=== PATIENT | male | born 1945 | race American Indian/Alaskan Native ===

== ENCOUNTER 2019-06-19 17:48 | Inpatient (IN) | payer MEDICARE ==
--- NOTE | 2019-06-19 18:17 | Event Note ---
ED Screening Note Date of service: 06/19/19 Time: 18:14 ED Screening Note: 73 y/o male comes in for ams after having a head injury and being discharge from hospital. This initial assessment/diagnostic orders/clinical plan/treatment(s) is/are subject to change based on patients health status, clinical progression and re- assessment by fellow clinical providers in the ED. Further treatment and workup at subsequent clinical providers discretion. Patient/guardian urged not to elope from the ED as their condition may be serious if not clinically assessed and managed. Initial orders include:
--- NOTE | 2019-06-19 19:15 | Cat Scan Report ---
CT BRAIN: 06/19/2019 INDICATION / CLINICAL INFORMATION: head injury new neuro sxs. COMPARISON: None available. FINDINGS: BRAIN/INTRACRANIAL STRUCTURES: Unenhanced CT images of the brain demonstrate no evidence of acute int racranial abnormality. Ventricles and sulci are prominent in size, consistent with diffuse cerebral atrophy. There is no evidence of acute ischemic injury, hemorrhage, or mass. There are no abnormal extra-axial fluid collections. EXTRACRANIAL STRUCTURES: Unremarkable. IMPRESSION: No acute abnormality. Prominent diffuse cerebral atrophy. All CT scans at this location are performed using dose reduction to ALARA by means of automated expos ure control. Signer Name: Phil Marroquin MD Signed: 06/19/2019 7:11 PM Workstation Name: [id number]
--- NOTE | 2019-06-19 20:27 | Emergency Department Report ---
HPI - General Chief Complaint: Headache Time Seen by Provider: 06/19/19 17:54 - HPI HPI: Room 3 The patient is a 73-year-old male presenting with a chief complaint of altered mental status. Patient's daughter states patient was found on the ground blee ding from his head 1 06/12/2019 at his assisted living facility. The patient is taken to [facility] where he was evaluated at his laceration repaired. 5 days later on 06/17/2019 patient was taken back to [facility] after complaining of a headache and he found hypotensive. Patient was admitted for 2 days and is hypotension was treated to dehydration compounded with prostate medication. The patient was returned to his assisted living facility yesterday. The patient's daughter states today he had an episode of unresponsiveness where he was staring off to the side for approximately 2 minutes without responding. The patient reportedly had a similar episode the day after his initial fall (06/13/2019). When asked how his feeling the patient points to pain to the left side of his neck and in both knees. The patient's daughter states that she is concerned that the patient is not continuously observed at the assisted-living facility she is seeking assisted placement Location: [See above] Duration: [See above] Quality: [See above] Severity: [See above] Timing: [See above] Context: [See above] Modifying factors: [See above] Associated signs and symptoms: [see above] ED Past Medical Hx - Past Medical History Previous Medical History?: Yes Additional medical history: parkinson, BPH, depression - Surgical History Past Surgical History?: Yes Additional Surgical History: 2 finger, 2 shoulder, - Family History Family history: no significant - Social History Smoking Status: Former Smoker (none 4-5 years) Substance Use Type: None - Medications Home Medications: Home Medications Medication Instructions Recorded Confirmed Last Taken Type HYDROcodone/ACETAMINOPHEN 1 tab PO PRN PRN 08/02/14 08/05/14 08/03/14 History [Hydrocodon-Acetaminophn 10-325] ED Review of Systems ROS: Stated complaint: BLANK STARE/HEADACHE Other details as noted in HPI Constitutional: no symptoms reported Eyes: denies: eye pain ENT: denies: throat pain Respiratory: no symptoms reported Cardiovascular: denies: chest pain Endocrine: no symptoms reported Gastrointestinal: denies: abdominal pain Genitourinary: denies: dysuria Musculoskeletal: arthralgia Neurological: headache Physical Exam - Physical Exam Vital Signs: Vital Signs 06/19/19 06/19/19 17:59 20:12 Temperature 98.0 F Pulse Rate 79 74 Respiratory 20 16 Rate Blood Pressure 118/63 Blood Pressure 117/65 [Right] O2 Sat by Pulse 98 98 Oximetry Physical Exam: GENERAL: The patient is well-developed thin male with flat affect lying on stretcher not appearing to be in acute distress []. [] HEENT: Normocephalic. Atraumatic. Extraocular motions are intact. Patient has moist mucous membranes. NECK: Supple. Left lateral neck pain. No axial step offs CHEST/LUNGS: Clear to auscultation. There is no respiratory distress noted. HEART/CARDIOVASCULAR: Regular. There is no tachycardia. There is no gallop rub or murmur. ABDOMEN: Abdomen is soft, nontender. Patient has normal bowel sounds. There is no abdominal distention. SKIN: There is no rash. There is no edema. There is no diaphoresis. NEURO: The patient is awake and oriented with flat affect. The patient is cooperative. The patient has no focal neurologic deficits. The patient has normal speech. Cranial nerves II through XII grossly intact, no drift. Moves all gonzales is well MUSCULOSKELETAL: There is trace discomfort to palpation of bilateral knees. There is no evidence of acute injury. ED Course Vital Signs 06/19/19 06/19/19 17:59 20:12 Temperature 98.0 F Pulse Rate 79 74 Respiratory 20 16 Rate Blood Pressure 118/63 Blood Pressure 117/65 [Right] O2 Sat by Pulse 98 98 Oximetry ED Medical Decision Making - Lab Data Result diagrams: 06/19/19 Unknown 06/19/19 Unknown Laboratory Tests 06/19/19 06/19/19 Unknown Unknown WBC 4.3 L RBC 3.86 Hgb 12.4 Hct 36.5 MCV 95 H MCH 32 MCHC 34 RDW 13.6 Plt Count 31 L Lymph % (Auto) Hand Polisher [place] % (Auto) Hand Polisher Eos % (Auto) Hand Polisher Baso % (Auto) Hand Polisher Lymph # Hand Polisher [place] # Hand Polisher Eos # Hand Polisher Baso # Hand Polisher Seg Neutrophils % Hand Polisher Seg Neutrophils # Hand Polisher Sodium 136 L Potassium 4.0 Chloride 95.9 L Carbon Dioxide 29 Anion Gap 15 BUN 15 Creatinine 0.7 L Estimated GFR > 60 BUN/Creatinine Ratio 21 Glucose 82 Calcium 9.8 Magnesium 1.60 L Total Bilirubin 0.20 AST 23 ALT 22 Alkaline Phosphatase 84 Total Creatine Kinase 102 CK-MB (CK-2) 2.0 CK-MB (CK-2) Rel Index 1.9 Troponin T < 0.010 Total Protein 6.7 Albumin 3.9 Albumin/Globulin Ratio 1.4 - EKG Data -: EKG Interpreted by Me EKG shows normal: sinus rhythm Rate: normal - EKG Data When compared to previous EKG there are: previous EKG unavailable Interpretation: other (no ischemic changes seen) - Radiology Data Radiology results: report reviewed (CT head, pelvis x-ray, CT cervical spine), image reviewed (CT head, pelvis x-ray, bilateral knee x-ray, CT cervical spine) interpreted by me: Post x-ray-no acute fracture Bilateral knee x-ray-no acute fracture [facility] [address] [place] [address] Cat Scan Report Signed Patient: PASTOR CANTRELL MR#: [id number] : 1945 Acct:[id number] Age/Sex: 73 / M ADM Date: 06/19/19 Loc: ED Attending Dr: Ordering Physician: LORIN HENAO Date of Service: 06/19/19 Procedure(s): CT head/brain wo con Accession Number(s): [id number] cc: LORIN HENAO CT BRAIN: 06/19/2019 INDICATION / CLINICAL INFORMATION: head injury new neuro sxs. COMPARISON: None available. FINDINGS: B RAIN/INTRACRANIAL STRUCTURES: Unenhanced CT images of the brain demonstrate no evidence of acute intracranial abnormality. Ventricles and sulci are prominent in size, consistent with diffuse cerebral atrophy. There is no evidence of acute ischemic injury, hemorrhage, or mass. There are no abnormal extra-axial fluid collections. EXTRACRANIAL STRUCTURES: Unremarkable. IMPRESSION: No acute abnormality. Prominent diffuse cerebral atrophy. All CT scans at this location are performed using dose reduction to ALARA by means of automated exposure control. Signer Name: Phil Marroquin MD Signed: 06/19/2019 7:11 PM Workstation Name: [id number] Transcribed By: AO Dictated By: Phil Marroquin MD Electronically Authenticated By: Phil Marroquin MD Signed Date/Time: 06/19/191910 DD/ 08 TD/TT: [address] [address] XRay Report Signed Patient: PASTOR CANTRELL MR#: [id number] : 1945 Acct:[id number] Age/Sex: 73 / M ADM Date: 06/19/19 Loc: ED Attending Dr: Ordering Physician: DEMOND DOHERTY MD Date of Service: 06/19/19 Procedure(s): XR pelvis 1-2V Accession Number(s): [id number] cc: DEMOND DOHERTY MD Fluoro Time In Minutes: EXAMINATION: Pelvic radiograph, 2 views, 06/19/2019 CLINICAL INFORMATION: Pelvic pain. Fall. COMPARISON: No relevant prior studies are available for comparison. FINDINGS: Evaluation of bony structures demonstrate no evidence of displaced pelvic fracture. There is mild degenerative change of both hips. Moderate amount of retained stool is noted throughout the lower abdomen. IMPRESSION: No evidence of acute bony fracture of the pelvis. Signer Name: Erin Garcia MD Signed: 06/19/2019 8:51 PM Workstation Name: [id number] Transcribed By: EB Dictated By: Erin Garcia MD Electronically Authenticated By: Erin Garcia MD Signed Date/Time: 06/19/192050 DD/ 49 TD/TT: [address] [address] XRay Report Signed Patient: PASTOR CANTRELL MR#: [id number] : 1945 Acct:[id number] Age/Sex: 73 / M ADM Date: 06/19/19 Loc: ED Attending Dr: Ordering Physician: DEMOND DOHERTY MD Date of Service: 06/19/19 Procedure(s): XR knee BILAT 1-2V Accession Number(s): [id number] cc: DEMOND DOHERTY MD Fluoro Time In Minutes: EXAMINATION: Left knee radiograph, 2 views, 06/19/2019 CLINICAL INFORMATION: Pain. Fall. COMPARISON: None. FINDINGS: There is no evidence of acute fracture or significant soft tissue swelling of the left knee. Signer Name: Erin Garcia MD Signed: 06/19/2019 8:52 PM Workstation Name: [id number] Transcribed By: EB Dictated By: Erin Garcia MD Electronically Authenticated By: Erin Garcia MD Signed Date/Time: 06/19/192051 DD/ 50 TD/TT: [facility] [address] [place] [address] Cat Scan Report Signed Patient: PASTOR CANTRELL MR#: [id number] : 1945 Acct:[id number] Age/Sex: 73 / M ADM Date: 06/19/19 Loc: ED Attending Dr: Ordering Physician: DEMOND DOHERTY MD Date of Service: 06/19/19 Procedure(s): CT cervical spine wo con Accession Number(s): [id number] cc: DEMOND DOHERTY MD CT cervical spine wo con INDICATION: neck pain after fall. TECHNIQUE: All CT scans at this location are performed using CT dose reduction for ALARA by means of automated exposure control. COMPARISON: None available. FINDINGS: Moderate spondylosis, but no fracture or subluxation. IMPRESSION: 1. No acute abnormality. Signer Name: Markos Landry MD Signed: 06/19/2019 10:28 PM Workstation Name: [id number] Transcribed By: TM Dictated By: Markos Landry MD Elect ronically Authenticated By: Markos Landry MD Signed Date/Time: 06/19/192227 DD/ 24 TD/TT: - Differential Diagnosis postconcussive syndrome, cervical fracture, seizure, failure Critical care attestation.: If time is entered above; I have spent that time in minutes in the direct care of this critically ill patient, excluding procedure time. ED Disposition Clinical Impression: Altered mental status Disposition: -09 OP ADMIT IP TO THIS HOSP Is pt being admited?: Yes Does the pt Need Aspirin: Yes Condition: Fair Time of Disposition: 22:54 (hospitalist paged(Dr Sánchez))
--- NOTE | 2019-06-19 20:55 | XRay Report ---
EXAMINATION: Pelvic radiograph, 2 views, 06/19/2019 CLINICAL INFORMATION: Pelvic pain. Fall. COMPARISON: No relevant prior studies are available for comparison. FINDINGS: Evaluation of bony structures demonstrate no evidence of displaced pelvic fracture. There is mild degenerative change of both hips. Moderate amount of retained stool is noted throughout the lower abdomen. IMPRESSION: No evidence of acute bony fracture of the pelvis. Signer Name: Erin Garcia MD Signed: 06/19/2019 8:51 PM Workstation Name: [id number]
--- NOTE | 2019-06-19 20:56 | XRay Report ---
EXAMINATION: Left knee radiograph, 2 views, 06/19/2019 CLINICAL INFORMATION: Pain. Fall. COMPARISON: None. FINDINGS: There is no evidence of acute fracture or significant soft tissue swelling of the left knee . Signer Name: Erin Garcia MD Signed: 06/19/2019 8:52 PM Workstation Name: [id number]
[2019-06-19 21:47] LABS: Hematocrit 36.5 % (35.5-45.6); Hemoglobin 12.4 gm/dl (11.8-15.2); Mean Corpuscular HGB Conc 34 % (32-34); Mean Corpuscular Volume 95 fl (84-94); Red Blood Count 3.86 M/mm3 (3.65-5.03); Red Cell Distribution Width 13.6 % (13.2-15.2)
[2019-06-19 21:50] LABS: Platelet Count 31 K/mm3 (140-440)
[2019-06-19 22:10] LABS: Alanine Aminotransferase 22 units/L (7-56); Albumin 3.9 g/dL (3.9-5); BUN/Creatinine Ratio 21; Blood Urea Nitrogen 15 mg/dL (9-20); Calcium 9.8 mg/dL (8.4-10.2); Hemolysis Index 47
--- NOTE | 2019-06-19 22:33 | Cat Scan Report ---
CT cervical spine wo con INDICATION: neck pain after fall. TECHNIQUE: All CT scans at this location are performed using CT dose reduction for ALARA by means of automated e xposure control. COMPARISON: None available. FINDINGS: Moderate spondylosis, but no fracture or subluxation. IMPRESSION: 1. No acute abnormality. Signer Name: Markos Landry MD Signed: 06/19/2019 10:28 PM Workstation Name: [id number]
[2019-06-19] MEDS ORDERED: ASPIRIN PO ONE (22:55)
[2019-06-19 23:09] LABS: Bacteria,Urine 3+ /HPF (Negative); Bilirubin,Urine NEG (Negative); Blood,Urine SM (Negative); Color,Urine Yellow (Yellow); Mucus,Urine FEW /HPF; Protein,Urine <15 mg/dL mg/dL (Negative)
[2019-06-19] MEDS ORDERED: ZOFRAN IV PRN (23:53)
[2019-06-19] MEDS ORDERED: SODIUM CHLORIDE FLUSH SYRINGE 10 ML IV PRN ×2 (23:53)
[2019-06-19] MEDS ORDERED: TYLENOL PO PRN (23:53)
--- NOTE | 2019-06-20 00:03 | History and Physical Report ---
History of Present Illness Date of examination: 06/19/19 Date of admission: 06/19/2019 Chief complaint: AMS History of present illness: Pt is a 73-year-old male with PMHx of Pakinson's dz who was brought to the ER for AMS. Pt's daughter in room, states that on 06/12/2019 she went to see her father at [facility] and found on the ground, he was bleeding from his head like he hit his head on something. Pt was taken to [facility] where he was evaluated for a head laceration. Pt was again evaluated on 06/17/2019 at [facility] for headache and hypotention. Pt's daughter reports that her father return to the [facility] today and she noticed that he was staring into space, which was unusual for him, she decided to call EMS for evaluation. Pt c/o headache, but remains silent when asked any other question, he appears emaciated, daughter reports that he lost a total of 14 lbs since admission to the [facility] due to anorexia. Past History Past Medical History: other (parkinson's dz) Past Surgical History: No surgical history Social history: no significant social history, other (live in an assisted living facility) Medications and Allergies Allergies Allergy/AdvReac Type Severity Reaction Status Date / Time No Known Allergies Allergy Verified 08/02/14 09:58 Home Medications Medication Instructions Recorded Confirmed Last Taken Type HYDROcodone/ACETAMINOPHEN 1 tab PO PRN PRN 08/02/14 08/05/14 08/03/14 History [Hydrocodon-Acetaminophn 10-325] Review of Systems ROS unobtainable: due to mental status Exam - Constitutional Vitals: Temp Pulse Resp BP Pulse Ox 97.8 F 73 15 115/67 100 06/19/19 23:52 06/19/19 23:52 06/19/19 23:52 06/19/19 23:52 06/19/19 23:52 General appearance: Present: mild distress - EENT Eyes: Present: EOM intact ENT: hearing intact - Neck Neck: Present: normal ROM - Respiratory Respiratory effort: normal Respiratory: bilateral: CTA - Cardiovascular Rhythm: regular Heart Sounds: Present: S1 & S2 - Extremities Extremities: no ischemia Peripheral Pulses: within normal limits - Abdominal General gastrointestinal: Present: non-tender, non-distended Male genitourinary: Present: deferred - Rectal Rectal Exam: deferred - Integumentary Integumentary: Present: clear, warm, dry - Musculoskeletal Musculoskeletal: strength equal bilaterally - Psychiatric Psychiatric: cooperative - Neurologic Neurologic: moves all extremities Results - Labs CBC & Chem 7: 06/19/19 Unknown 06/19/19 Unknown Labs: Laboratory Last Values WBC 4.3 K/mm3 (4.5-11.0) L 06/19/19 Unknown RBC 3.86 M/mm3 (3.65-5.03) 06/19/19 Unknown Hgb 12.4 gm/dl (11.8-15.2) 06/19/19 Unknown Hct 36.5 % (35.5-45.6) 06/19/19 Unknown MCV 95 fl (84-94) H 06/19/19 Unknown MCH 32 pg (28-32) 06/19/19 Unknown MCHC 34 % (32-34) 06/19/19 Unknown RDW 13.6 % (13.2-15.2) 06/19/19 Unknown Plt Count 31 K/mm3 (140-440) L 06/19/19 Unknown Lymph % (Auto) Substance Abuse Rn 06/19/19 Unknown [place] % (Auto) Substance Abuse Rn 06/19/19 Unknown Eos % (Auto) Substance Abuse Rn 06/19/19 Unknown Baso % (Auto) Substance Abuse Rn 06/19/19 Unknown Lymph # Substance Abuse Rn 06/19/19 Unknown [place] # Substance Abuse Rn 06/19/19 Unknown Eos # Substance Abuse Rn 06/19/19 Unknown Baso # Substance Abuse Rn 06/19/19 Unknown Seg Neutrophils % Substance Abuse Rn 06/19/19 Unknown Seg Neutrophils # Substance Abuse Rn 06/19/19 Unknown Sodium 136 mmol/L (137-145) L 06/19/19 Unknown Potassium 4.0 mmol/L (3.6-5.0) 06/19/19 Unknown Chloride 95.9 mmol/L (98-107) L 06/19/19 Unknown Carbon Dioxide 29 mmol/L (22-30) 06/19/19 Unknown 15 mmol/L 06/19/19 Unknown BUN 15 mg/dL (9-20) 06/19/19 Unknown 0.7 mg/dL (0.8-1.5) L 06/19/19 Unknown Estimated GFR > 60 ml/min 06/19/19 Unknown 21 % 06/19/19 Unknown Glucose 82 mg/dL (75-100) 06/19/19 Unknown Calcium 9.8 mg/dL (8.4-10.2) 06/19/19 Unknown Magnesium 1.60 mg/dL (1.7-2.3) L 06/19/19 Unknown 0.20 mg/dL (0.1-1.2) 06/19/19 Unknown AST 23 units/L (5-40) 06/19/19 Unknown ALT 22 units/L (7-56) 06/19/19 Unknown 84 units/L (35-129) 06/19/19 Unknown 102 units/L (55-170) 06/19/19 Unknown CK-MB (CK-2) 2.0 ng/mL (0.0-4.0) 06/19/19 Unknown CK-MB (CK-2) Rel Index 1.9 (0-4) 06/19/19 Unknown < 0.010 ng/mL (0.00-0.029) 06/19/19 Unknown 6.7 g/dL (6.3-8.2) 06/19/19 Unknown 3.9 g/dL (3.9-5) 06/19/19 Unknown 1.4 % 06/19/19 Unknown Yellow (Yellow) 06/19/19 22:15 Slightly-cloudy (Clear) 06/19/19 22:15 5.0 (5.0-7.0) 06/19/19 22:15 Ur Specific [place] 1.019 (1.003-1.030) 06/19/19 22:15 <15 mg/dl mg/dL (Negative) 06/19/19 22:15 Neg mg/dL (Negative) 06/19/19 22:15 Neg mg/dL (Negative) 06/19/19 22:15 Sm (Negative) 06/19/19 22:15 Pos (Negative) 06/19/19 22:15 Neg (Negative) 06/19/19 22:15 2.0 mg/dL (<2.0) 06/19/19 22:15 Ur Leukocyte Esterase Tr (Negative) 06/19/19 22:15 5.0 /HPF (0.0-6.0) 06/19/19 22:15 3.0 /HPF (0.0-6.0) 06/19/19 22:15 3+ /HPF (Negative) 06/19/19 22:15 Few /HPF 06/19/19 22:15 Assessment and Plan Assessment and plan: 1. AMS 2. Parkinson disease 3. Protein calorie malnutrition (weight) Plan: Admit to med telemetry for AMS MRI of the brain to rule out CVA Physical therapy/occupational therapy to evaluate and treat Consult case management for DC planning Ensure TID with meals Resume home meds Plan d/w patient and family in room, voiced understand Plan d/w Dr with Dr Advance Directives: Yes VTE prophylaxis?: Chemical Plan of care discussed with patient/family: Yes
[2019-06-20] MEDS ORDERED: ASPIRIN ONE (01:08)
[2019-06-20] MEDS: SODIUM CHLORIDE FLUSH SYRINGE 10 ML IV SCH ×3 (01:09→21:22)
[2019-06-20] MEDS: D5W/0.45% NACL/KCL 20 MEQ 20 MEQ/1,000 ML BAG IV SCH (02:38)
[2019-06-20 06:03] LABS: Chol/HDL Ratio 1.43 %
--- NOTE | 2019-06-20 07:59 | Progress Note ---
Assessment and Plan Assessment and plan: Per ED documentation The patient is a 73-year-old male presenting with a chief complaint of altered mental status. Patient's daughter states patient was found on the ground bleeding from his head 1 06/12/2019 at his assisted living facility. The patient is taken to [facility] where he was evaluated at his laceration repaired. 5 days later on 06/17/2019 patient was taken back to [facility] after complaining of a headache and he found hypotensive. Patient was admitted for 2 days and is hypotension was treated to dehydration compounded with prostate medication. The patient was returned to his assisted living facility yesterday. The patient's daughter states today he had an episode of u nresponsiveness where he was staring off to the side for approximately 2 minutes without responding. The patient reportedly had a similar episode the day after his initial fall (06/13/2019). When asked how his feeling the patient points to pain to the left side of his neck and in both knees. The patient's daughter states that she is concerned that the patient is not continuously observed at the assisted-living facility she is seeking shelter placement * Per daughter patient normally able to assist with ADL including some shuffling gait which has declined * She will discuss with him and think about PEG if needed. Seizure vs CVA-Reported with blank stare- doubt CVA Adult Failure to Thrive, BMI OF 12, Recent 14 pounds weight loss Severe Protien calorie malnutrition Hypomagenesmia Acute Metabolic Encephalopathy Recent head trauma Requiring suturing Parkison disease Plan: Continue supportive care Neurology consult Obtain records from [facility] [employer] consult Carotid US Replace Mag level MRI of the brain to rule out CVA- IF any CVA then will obtain Echo Physical therapy/occupational therapy to evaluate and treat Consult case management for DC planning Ensure TID with meals Resume home meds Plan d/w patient and family in room, voiced understand Plan d/w with Advance Directives: Yes- 30 mins VTE prophylaxis?: Chemical Plan of care discussed with patient/family: Yes History Interval history: Patient seen and examined, spent time discussing with the daughter who informs me that the patient since being placed at the assisted living facility has declined. comuniating to the last month fall and visit to [facility]. Patient this am remains lethargic, awakes to answer questions. Hospitalist Physical - Physical exam Narrative exam: General appearance: Present: mild distress, lethargic, suture to the scalp - EENT Eyes: Present: EOM intact ENT: hearing intact - Neck Neck: Present: normal ROM - Respiratory Respiratory effort: normal Respiratory: bilateral: CTA - Cardiovascular Rhythm: regular Heart Sounds: Present: S1 & S2 - Extremities Extremities: no ischemia Peripheral Pulses: within normal limits - Abdominal General gastrointestinal: Present: non-tender, non-distended Male genitourinary: Present: deferred - Rectal Rectal Exam: deferred - Integumentary Integumentary: Present: clear, warm, dry - Musculoskeletal Musculoskeletal: strength equal bilaterally - Psychiatric Psychiatric: cooperative - Neurologic Neurologic: moves all extremities - Constitutional Vitals: Temp Pulse Resp BP Pulse Ox 97.5 F L 63 18 122/67 100 06/20/19 04:20 06/20/19 04:20 06/20/19 04:20 06/20/19 04:20 06/20/19 04:20 General appearance: Present: mild distress Results - Labs CBC & Chem 7: 06/19/19 Unknown 06/19/19 Unknown Labs: Laboratory Last Values WBC 4.3 K/mm3 (4.5-11.0) L 06/19/19 Unknown RBC 3.86 M/mm3 (3.65-5.03) 06/19/19 Unknown Hgb 12.4 gm/dl (11.8-15.2) 06/19/19 Unknown Hct 36.5 % (35.5-45.6) 06/19/19 Unknown MCV 95 fl (84-94) H 06/19/19 Unknown MCH 32 pg (28-32) 06/19/19 Unknown MCHC 34 % (32-34) 06/19/19 Unknown RDW 13.6 % (13.2-15.2) 06/19/19 Unknown Plt Count 31 K/mm3 (140-440) L 06/19/19 Unknown Lymph % (Auto) Plasma Table Operator 06/19/19 Unknown [place] % (Auto) Plasma Table Operator 06/19/19 Unknown Eos % (Auto) Plasma Table Operator 06/19/19 Unknown Baso % (Auto) Plasma Table Operator 06/19/19 Unknown Lymph # Plasma Table Operator 06/19/19 Unknown [place] # Plasma Table Operator 06/19/19 Unknown Eos # Plasma Table Operator 06/19/19 Unknown Baso # Plasma Table Operator 06/19/19 Unknown Seg Neutrophils % Plasma Table Operator 06/19/19 Unknown Seg Neutrophils # Plasma Table Operator 06/19/19 Unknown Sodium 136 mmol/L (137-145) L 06/19/19 Unknown Potassium 4.0 mmol/L (3.6-5.0) 06/19/19 Unknown Chloride 95.9 mmol/L (98-107) L 06/19/19 Unknown Carbon Dioxide 29 mmol/L (22-30) 06/19/19 Unknown 15 mmol/L 06/19/19 Unknown BUN 15 mg/dL (9-20) 06/19/19 Unknown 0.7 mg/dL (0.8-1.5) L 06/19/19 Unknown Estimated GFR > 60 ml/min 06/19/19 Unknown 21 % 06/19/19 Unknown Glucose 82 mg/dL (75-100) 06/19/19 Unknown 5.5 % (4-6) 06/20/19 04:40 Calcium 9.8 mg/dL (8.4-10.2) 06/19/19 Unknown Magnesium 1.60 mg/dL (1.7-2.3) L 06/19/19 Unknown 0.20 mg/dL (0.1-1.2) 06/19/19 Unknown AST 23 units/L (5-40) 06/19/19 Unknown ALT 22 units/L (7-56) 06/19/19 Unknown 84 units/L (35-129) 06/19/19 Unknown 102 units/L (55-170) 06/19/19 Unknown CK-MB (CK-2) 2.0 ng/mL (0.0-4.0) 06/19/19 Unknown CK-MB (CK-2) Rel Index 1.9 (0-4) 06/19/19 Unknown < 0.010 ng/mL (0.00-0.029) 06/19/19 Unknown 6.7 g/dL (6.3-8.2) 06/19/19 Unknown 3.9 g/dL (3.9-5) 06/19/19 Unknown 1.4 % 06/19/19 Unknown Triglycerides 49 mg/dL (2-149) 06/20/19 04:40 Cholesterol 172 mg/dL (50-199) 06/20/19 04:40 67 mg/dL (50-130) 06/20/19 04:40 120 mg/dL (40-59) H 09/07/19 04:40 1.43 % 06/20/19 04:40 Yellow (Yellow) 06/19/19 22:15 Slightly-cloudy (Clear) 06/19/19 22:15 5.0 (5.0-7.0) 06/19/19 22:15 Ur Specific [place] 1.019 (1.003-1.030) 06/19/19 22:15 <15 mg/dl mg/dL (Negative) 06/19/19 22:15 Neg mg/dL (Negative) 06/19/19 22:15 Neg mg/dL (Negative) 06/19/19 22:15 Sm (Negative) 06/19/19 22:15 Pos (Negative) 06/19/19 22:15 Neg (Negative) 06/19/19 22:15 2.0 mg/dL (<2.0) 06/19/19 22:15 Ur Leukocyte Esterase Tr (Negative) 06/19/19 22:15 5.0 /HPF (0.0-6.0) 06/19/19 22:15 3.0 /HPF (0.0-6.0) 06/19/19 22:15 3+ /HPF (Negative) 06/19/19 22:15 Few /HPF 06/19/19 22:15 Active Medications - Current Medications Current Medications: Generic Name Dose Route Start Last Admin Trade Name Jessica PRN Reason Stop Dose Admin Acetaminophen 650 mg 06/19/19 23:53 Tylenol PO Q4H PRN Pain MILD(1-3)/Fever >100.5/CALZADA Potassium Chloride/Dextrose/Sod Cl 20 meq in 1,000 mls @ 42 mls/hr 06/19/19 23:45 06/20/19 02:38 D5w/0.45% Nacl/Kcl 20 Meq IV 42 mls/hr DIRECT MERY Administration Ondansetron HCl 4 mg 06/19/19 23:53 Zofran IV Q8H PRN Nausea And Vomiting Sodium Chloride 10 ml 06/19/19 23:45 06/20/19 01:09 Sodium Chloride Flush Syringe 10 Ml IV 10 ml BID MERY Administration Sodium Chloride 10 ml 06/19/19 23:53 Sodium Chloride Flush Syringe 10 Ml IV PRN PRN LINE FLUSH
[2019-06-20] MEDS ORDERED: MAGNESIUM SULFATE 1 GM in NACL 0.9% 50 ML IV ONE (09:00)
--- NOTE | 2019-06-20 09:46 | Progress Note ---
Subjective Date of service: 06/20/19 Interval history: patient seen and went over the results of studies... and iscussed with staff Objective - Vital Sign Vital Signs - 12hr 06/19/19 06/19/19 06/20/19 23:00 23:52 00:19 Temperature 97.8 F Pulse Rate 68 73 60 Respiratory 14 15 Rate Blood Pressure 124/65 Blood Pressure 115/67 [Right] O2 Sat by Pulse 100 100 Oximetry 06/20/19 06/20/19 06/20/19 01:00 04:20 08:00 Temperature 97.5 F L 97.5 F L Pulse Rate 75 63 63 Respiratory 11 L 18 18 Rate Blood Pressure 115/67 122/67 Blood Pressure 127/60 [Right] O2 Sat by Pulse 100 99 Oximetry - Laboratory Findings CBC and BMP: 06/19/19 Unknown 06/19/19 Unknown Abnormal Lab Findings: Abnormal Labs 06/19/19 06/19/19 06/20/19 Unknown Unknown 04:40 WBC 4.3 L MCV 95 H Plt Count 31 L Sodium 136 L Chloride 95.9 L Creatinine 0.7 L Magnesium 1.60 L HDL Cholesterol 120 H
--- NOTE | 2019-06-20 17:15 | Vascular Lab Report ---
VL carotid duplex BILAT INDICATION / CLINICAL INFORMATION: cva. COMPARISON: None available. FINDINGS: No significant plaque formation is demonstrated at the bifurcations. Velocity measurements and wavefo rm analysis indicate less than 50% stenosis of each internal carotid, according to Nascet criteria. Normal antegrade flow is demonstrated in both vertebral arteries. IMPRESSION: 1. No significant stenosis. Signer Name: Markos Landry MD Signed: 06/20/2019 5:11 PM Workstation Name: [id number]
[2019-06-21] MEDS: D5W/0.45% NACL/KCL 20 MEQ 20 MEQ/1,000 ML BAG IV SCH (03:54)
--- NOTE | 2019-06-21 05:27 | Consultation ---
HISTORY OF PRESENT ILLNESS: This is a 73-year-old male who presents with chief complaint of altered mental status. The patient was found on the ground bleeding from his head and was in assisted living facility. He had been taken to [facility] by ambulance and he was evaluated for the laceration. Later on 06/17/2019, the patient was taken back to [place] complaining of headache, was found to be hypotensive. He was then admitted for 3 days with hypertension, treated for dehydration. In the interval, he has not improved. He is taking hydrocodone for pain. PHYSICAL EXAMINATION: VITAL SIGNS: On my examination, the patient's blood pressure is 118/63, temperature 98 degrees, pulse rate 79, respirations 18, PaO2 on pulse oximeter was 98%. NEUROLOGIC: The patient had pain to palpation of the left lateral side of the neck. He had palpations over the knees that were slightly painful throughout. His speech is felt to be normal. He had a flat affect. He was very cooperative. He was awake and oriented, but was slightly subdued as far as his level of consciousness. Laboratories revealed hematocrit of 36. His potassium is 4, sodium 136, creatinine is 0.7. The patient was felt to have severe dehydration, altered mental status. I did review over x-rays of his pelvis, knees and also cervical spine CT. The patient's CT scan of the head was personally reviewed by me. There is some rotational artifact, but the patient's CT of the head shows a very marked amount of cerebellar degeneration, quite profound in the lateral hemispheres of the cerebellum with marked shrinkage as well as a midline cerebellar shrinkage as well as bifrontal shrinkage in the frontal lobes, much more so than the posterior parietal lobes, perhaps suggesting the appearance of frontotemporal atrophy since the parietal lobes are relatively well maintained, markedly more atrophy present in the temporal and frontal horns, but as well a slightly unusual picture with the marked amount of the cerebellar hemisphere atrophy. At this point, it seems as if the patient's problem is postconcussion syndrome with sequela of dehydration, also might consider that the patient had a seizure. I have reviewed over the CT scan report of the neck. It shows moderate spondylosis without any fracture or dislocation injury. At this point, the patient's MRI scan of the brain is pending and this will be looked at shortly. JOB# [id number] PRADEEP/PAT
[2019-06-21 06:08] LABS: BUN/Creatinine Ratio 28; Blood Urea Nitrogen 14 mg/dL (9-20); Calcium 9.2 mg/dL (8.4-10.2); Hemolysis Index 4
--- NOTE | 2019-06-21 07:35 | Progress Note ---
Assessment and Plan Assessment and plan: Per ED documentation The patient is a 73-year-old male presenting with a chief complaint of altered mental status. Patient's daughter states patient was found on the ground bleeding from his head 1 06/12/2019 at his assisted living facility. The patient is taken to [facility] where he was evaluated at his laceration repaired. 5 days later on 06/17/2019 patient was taken back to [facility] after complaining of a headache and he found hypotensive. Patient was admitted for 2 days and is hypotension was treated to dehydration compounded with prostate medication. The patient was returned to his assisted living facility yesterday. The patient's daughter states today he had an episode of u nresponsiveness where he was staring off to the side for approximately 2 minutes without responding. The patient reportedly had a similar episode the day after his initial fall (06/13/2019). When asked how his feeling the patient points to pain to the left side of his neck and in both knees. The patient's daughter states that she is concerned that the patient is not continuously observed at the assisted-living facility she is seeking senior care placement * Per daughter patient normally able to assist with ADL including some shuffling gait which has declined * She will discuss with him and think about PEG if needed. * Neurology review of imaging was concerning for cerebellar degeneration, pround lateral hemisphers of the ceerebellum with maked shrinkage as well as midline cerebellar shrinkage with frontotemporal atrophy Seizure vs CVA-Reported with blank stare- doubt CVA Dehydration Postconcussion syndrome Adult Failure to Thrive, BMI OF 12, Recent 14 pounds weight loss Severe Protien calorie malnutrition Hypomagenesmia Acute Metabolic Encephalopathy Recent head trauma Requiring suturing Parkinson disease Thrombocytopenia Plan: Continue supportive care Neurology consult noted Monitor plt, no bleeding noted Hematology consult Awaiting MRI on head will obtain xray right shoulder to ensure no hardware from prior surgery Obtain records from [facility]-Pending Physical therapy/occupational therapy to evaluate and treat Consult case management for DC planning Ensure TID with meals Resume home meds Plan d/w patient and family in room, voiced understand Plan d/w with Advance Directives: Yes- 30 mins VTE prophylaxis?: Chemical Plan of care discussed with patient/family: Yes History Interval history: Patient seen and examined, spent time discussing with the daughter who informs me that the patient since being placed at the assisted living facility has declined. communicating to the last month fall and visit to [facility]. Patient this am remains lethargic, awakes to answer questions. 24 hr Update Patient tolerating diet per nursing staff. Feed himself. Daughter informs me that he eats very slowly and this is normal for him Hospitalist Physical - Physical exam Narrative exam: General appearance: Present: somnolence but improving from yesterday, suture to the scalp - EENT Eyes: Present: EOM intact ENT: hearing intact - Neck Neck: Present: normal ROM - Respiratory Respiratory effort: normal Respiratory: bilateral: CTA - Cardiovascular Rhythm: regular Heart Sounds: Present: S1 & S2 - Extremities Extremities: no ischemia Peripheral Pulses: within normal limits - Abdominal General gastrointestinal: Present: non-tender, non-distended Male genitourinary: Present: deferred - Rectal Rectal Exam: deferred - Integumentary Integumentary: Present: clear, warm, dry - Musculoskeletal Musculoskeletal: strength equal bilaterally - Psychiatric Psychiatric: cooperative - Neurologic Neurologic: moves all extremities - Constitutional Vitals: Temp Pulse Resp BP Pulse Ox 98.0 F 74 18 111/67 99 06/21/19 05:30 06/21/19 05:28 06/21/19 05:28 06/21/19 05:28 06/21/19 05:28 General appearance: Present: mild distress Results - Labs CBC & Chem 7: 06/19/19 Unknown 06/21/19 04:42 Labs: Laboratory Last Values WBC 4.3 K/mm3 (4.5-11.0) L 06/19/19 Unknown RBC 3.86 M/mm3 (3.65-5.03) 06/19/19 Unknown Hgb 12.4 gm/dl (11.8-15.2) 06/19/19 Unknown Hct 36.5 % (35.5-45.6) 06/19/19 Unknown MCV 95 fl (84-94) H 06/19/19 Unknown MCH 32 pg (28-32) 06/19/19 Unknown MCHC 34 % (32-34) 06/19/19 Unknown RDW 13.6 % (13.2-15.2) 06/19/19 Unknown Plt Count 31 K/mm3 (140-440) L 06/19/19 Unknown Lymph % (Auto) Trumpet Player 06/19/19 Unknown [place] % (Auto) Trumpet Player 06/19/19 Unknown Eos % (Auto) Trumpet Player 06/19/19 Unknown Baso % (Auto) [place] 06/19/19 Unknown Lymph # [place] 06/19/19 Unknown [place] # Trumpet Player 06/19/19 Unknown Eos # Trumpet Player 06/19/19 Unknown Baso # Trumpet Player 06/19/19 Unknown Seg Neutrophils % Trumpet Player 06/19/19 Unknown Seg Neutrophils # Trumpet Player 06/19/19 Unknown Sodium 135 mmol/L (137-145) L 06/21/19 04:42 Potassium 3.8 mmol/L (3.6-5.0) 06/21/19 04:42 Chloride 100.4 mmol/L (98-107) 06/21/19 04:42 Carbon Dioxide 27 mmol/L (22-30) 06/21/19 04:42 11 mmol/L 06/21/19 04:42 BUN 14 mg/dL (9-20) 06/21/19 04:42 0.5 mg/dL (0.8-1.5) L 06/21/19 04:42 Estimated GFR > 60 ml/min 06/21/19 04:42 28 % 06/21/19 04:42 Glucose 90 mg/dL (75-100) 06/21/19 04:42 POC Glucose 144 (70-105) H 06/20/19 22:10 5.5 % (4-6) 06/20/19 04:40 Calcium 9.2 mg/dL (8.4-10.2) 06/21/19 04:42 Magnesium 1.60 mg/dL (1.7-2.3) L 06/19/19 Unknown 0.20 mg/dL (0.1-1.2) 06/19/19 Unknown AST 23 units/L (5-40) 06/19/19 Unknown ALT 22 units/L (7-56) 06/19/19 Unknown 84 units/L (35-129) 06/19/19 Unknown 102 units/L (55-170) 06/19/19 Unknown CK-MB (CK-2) 2.0 ng/mL (0.0-4.0) 06/19/19 Unknown CK-MB (CK-2) Rel Index 1.9 (0-4) 06/19/19 Unknown < 0.010 ng/mL (0.00-0.029) 06/19/19 Unknown 6.7 g/dL (6.3-8.2) 06/19/19 Unknown 3.9 g/dL (3.9-5) 06/19/19 Unknown 1.4 % 06/19/19 Unknown Triglycerides 49 mg/dL (2-149) 06/20/19 04:40 Cholesterol 172 mg/dL (50-199) 06/20/19 04:40 67 mg/dL (50-130) 06/20/19 04:40 120 mg/dL (40-59) H 06/20/19 04:40 1.43 % 06/20/19 04:40 Yellow (Yellow) 06/19/19 22:15 Slightly-cloudy (Clear) 06/19/19 22:15 5.0 (5.0-7.0) 06/19/19 22:15 Ur Specific [place] 1.019 (1.003-1.030) 06/19/19 22:15 <15 mg/dl mg/dL (Negative) 06/19/19 22:15 Neg mg/dL (Negative) 06/19/19 22:15 Neg mg/dL (Negative) 06/19/19 22:15 Sm (Negative) 06/19/19 22:15 Pos (Negative) 06/19/19 22:15 Neg (Negative) 06/19/19 22:15 2.0 mg/dL (<2.0) 06/19/19 22:15 Ur Leukocyte Esterase Tr (Negative) 06/19/19 22:15 5.0 /HPF (0.0-6.0) 06/19/19 22:15 3.0 /HPF (0.0-6.0) 06/19/19 22:15 3+ /HPF (Negative) 06/19/19 22:15 Few /HPF 06/19/19 22:15 Active Medications - Current Medications Current Medications: Generic Name Dose Route Start Last Admin Trade Name Freq PRN Reason Stop Dose Admin Acetaminophen 650 mg 06/19/19 23:53 Tylenol PO Q4H PRN Pain MILD(1-3)/Fever >100.5/CALZADA Potassium Chloride/Dextrose/Sod Cl 20 meq in 1,000 mls @ 42 mls/hr 06/19/19 23:45 06/21/19 03:54 D5w/0.45% Nacl/Kcl 20 Meq IV 42 mls/hr DIRECT MERY Administration Ondansetron HCl 4 mg 06/19/19 23:53 Zofran IV Q8H PRN Nausea And Vomiting Sodium Chloride 10 ml 06/19/19 23:45 06/20/19 21:22 Sodium Chloride Flush Syringe 10 Ml IV Not Given BID MERY Sodium Chloride 10 ml 06/19/19 23:53 Sodium Chloride Flush Syringe 10 Ml IV PRN PRN LINE FLUSH Nutrition/Malnutrition Assess - Dietary Evaluation Nutrition/Malnutrition Findings: Nutrition Notes Start: 06/20/19 09:34 Freq: Status: Active Protocol: Document 06/20/19 09:34 LM (Rec: 06/20/19 10:02 LM [id number]) Nutrition Notes Need for Assessment generated from: MD Order,MST Initial or Follow up Assessment Other Pertinent Diagnosis Parkinson's disease, AMS Current Diet NPO Labs/Tests Na 136 Cr 0.7 Mg 1.6 HgBA1C 5.5 BG 82 Pertinent Medications Reviewed Height 5 ft 11 in Weight 38.9 kg Usual Body Weight 50 kg Fults Body Weight (kg) 78.18 BMI 12.0 Intake Prior to Admission Poor Weight change and time frame 23% wt loss in 9 months Subjective/Other Information MD consult for MST. Pt unable to speak at time of visit. Daughter stated that pt lost about 14 lb from last September to November and has beem continually losing weight. Jaysonuhter stated pt's UBW is between 110-112 lb. Daughter stated that pt's dentures do not fit due to pt's wt loss and has only been able to eat soft foods. Pt is at an assisted living facility and has trouble feeding himself due to Parkinson's disease. Daughter also stated that pt had high prior hgbA1C and is prediabetic and prefers Glucerna. Noticed muscle wasting in wrists and orbital region. Burn Absent Trauma Absent Difficulty In Chewing Minimum of two criteria Yes Energy Intake (severe) < or equal to 50% Estimated Energy Requirement > or equal to 5 days Interpretation of Weight Loss (severe) >10% in 6 months Muscle Mass Moderate Depletion (severe) #1 Nutrition Diagnosis Malnutrition Etiology Parkinson's disease As Evidenced by Signs and Symptoms 23% weight loss in 9 months, muscle wasting of wrists and orbital region of eyes, less than 50% estimated energy requirement for greater than 5 days Is patient on ventilator? No Is Patient Ambulatory and/or Out of Bed No REE-([facility]-confined to bed) 1387.992 Kcal/Kg value to use for calculation 49 Approximate Energy Requirements Using 1906 kcal/Kg Calculation Used for Recommendations Kcal/kg Additional Notes Protein: 47-58g (1.2-1.5 g/kg) Fluids: 1 ml/kcal Nutrition Intervention Change Diet Order: Advance to mechanical soft when medically feasible Add Supplement/Snack (indicate name/kcal Glucerna [place] TID /protein ) Provides kCal: 660 Provides Protein (gm) 30 Goal #1 Diet advancement Goal #2 Meet at least 80% of energy and protein needs Anticipated Discharge Needs: Mechanical soft diet with ONS TID Follow-Up By: 06/22/19 Additional Comments F/U for diet advancement, PO/ ONS intakes
--- NOTE | 2019-06-21 08:25 | XRay Report ---
EXAMINATION: Right shoulder radiograph, 2 views, 06/21/2019 CLINICAL INFORMATION: Evaluate for hardware. COMPARISON: No relevant prior study is available for comparison. FINDINGS: There is mild to moderate degenerative change of the acromioclavicular joint. There is no e vidence of glenohumeral dislocation. No radiodense metallic foreign bodies are identified overlying the shoulder. Signer Name: Erin Garcia MD Signed: 06/21/2019 8:21 AM Workstation Name: [id number]
[2019-06-21] MEDS: SODIUM CHLORIDE FLUSH SYRINGE 10 ML IV SCH (09:19)
[2019-06-22] MEDS: SODIUM CHLORIDE FLUSH SYRINGE 10 ML IV SCH ×3 (01:25→22:23)
[2019-06-22] MEDS: D5W/0.45% NACL/KCL 20 MEQ 20 MEQ/1,000 ML BAG IV SCH (01:25)
[2019-06-22 06:15] LABS: Hematocrit 31.7 % (35.5-45.6); Hemoglobin 10.8 gm/dl (11.8-15.2); Mean Corpuscular HGB Conc 34 % (32-34); Mean Corpuscular Volume 94 fl (84-94); Red Blood Count 3.37 M/mm3 (3.65-5.03)
[2019-06-22 07:29] LABS: Platelet Count TNR K/mm3 (140-440)
[2019-06-22] MEDS ORDERED: NON-FORMULARY (Mirtazapine 15 MG) PO SCH (10:00)
[2019-06-22] MEDS ORDERED: COLACE PO PRN (10:00)
[2019-06-22] MEDS: SINEMET PO SCH ×3 (10:11→22:23)
[2019-06-22] MEDS: FLOMAX PO SCH (10:11)
[2019-06-22] MEDS: CLARITIN PO SCH (11:00)
--- NOTE | 2019-06-22 11:39 | Magnetic Resonance Report ---
MRI BRAIN WITHOUT CONTRAST INDICATION / CLINICAL INFORMATION: CVA, stroke. TECHNIQUE: Multisequence, multiplanar images were obtained. COMPARISON: 07/12/2016 FINDINGS: CEREBRAL and CEREBELLAR HEMISPHERES: Mild diffuse cortical volume loss and minimal nonspecific chroni c white matter changes are identified. No evidence of mass or mass effect. No midline shift. No acu te hemorrhage. No diffusion restriction to suggest acute infarct. No extra-axial fluid collection. VENTRICLES: Normal in size and configuration for age. VISUALIZED ORBITS: No significant abnormality. VISUALIZED PARANASAL SINUSES: No significant abnormality. ADDITIONAL FINDINGS: None. IMPRESSION: Mild volume loss and minimal nonspecific chronic white matter changes. No acute intracranial process. No significant change since 07/12/2016. Signer Name: Sung Salas Jr, MD Signed: 06/22/2019 11:35 AM Workstation Name: [id number]
[2019-06-22] MEDS: FERGON PO SCH (12:00)
--- NOTE | 2019-06-22 12:17 | Progress Note ---
Assessment and Plan Assessment and plan: Per ED documentation The patient is a 73-year-old male presenting with a chief complaint of altered mental status. Patient's daughter states patient was found on the ground bleeding from his head 1 06/12/2019 at his assisted living facility. The patient is taken to [facility] where he was evaluated at his laceration repaired. 5 days later on 06/17/2019 patient was taken back to [facility] after complaining of a headache and he found hypotensive. Patient was admitted for 2 days and is hypotension was treated to dehydration compounded with prostate medication. The patient was returned to his assisted living facility yesterday. The patient's daughter states today he had an episode of u nresponsiveness where he was staring off to the side for approximately 2 minutes without responding. The patient reportedly had a similar episode the day after his initial fall (06/13/2019). When asked how his feeling the patient points to pain to the left side of his neck and in both knees. The patient's daughter states that she is concerned that the patient is not continuously observed at the assisted-living facility she is seeking fci placement * Per daughter patient normally able to assist with ADL including some shuffling gait which has declined * She will discuss with him and think about PEG if needed. * Neurology review of imaging was concerning for cerebellar degeneration, profound lateral hemisphere of the ceerebellum with marked shrinkage as well as midline cerebellar shrinkage with frontotemporal atrophy MRI: Negative for acute event Seizure vs CVA-Reported with blank stare- doubt CVA Dehydration Postconcussion syndrome Adult Failure to Thrive, BMI OF 12, Recent 14 pounds weight loss Severe Protien calorie malnutrition Hypomagenesmia Acute Metabolic Encephalopathy Recent head trauma Requiring suturing Parkinson disease Thrombocytopenia- Resolve Plan: Continue supportive care Neurology consult noted Monitor plt, no bleeding noted Hematology consult IF PERSISTENT THROMBOCYTOPENA NOTED Physical therapy/occupational therapy to evaluate and treat Consult case management for DC planning Ensure TID with meals Subacute Rehab PLACEMENT PENDING Resume home meds Plan d/w patient and family in room, voiced understand Plan d/w Advance Directives: Yes- 30 mins VTE prophylaxis?: Chemical Plan of care discussed with patient/family: Yes History Interval history: Patient seen and examined, spent time discussing with the daughter who informs me that the patient since being placed at the assisted living facility has declined. communicating to the last month fall and visit to [place]. Patient this am remains lethargic, awakes to answer questions. 24 hr Update Patient Continues to tolerate PO intake although requires longer time as daughter stated Noted slight nasal bleed Overnight Hospitalist Physical - Physical exam Narrative exam: VITAL SIGNS: Reviewed. GENERAL: The patient appears chronically ill with marked cachexia, lethargic Vital signs as documented. HEAD: Temporal wasting otherwise, continue the scalp noted EYES: Pupils are equal. Extraocular motions intact. EARS: Hearing grossly intact. MOUTH: Oropharynx is normal. NECK: No adenopathy, no JVD. CHEST: Chest with clear breath sounds bilaterally. No wheezes, rales, or rhonchi. CARDIAC: Regular rate and rhythm. S1 and S2, without murmurs, gallops, or rubs. VASCULAR: No Edema. Peripheral pulses normal and equal in all extremities. ABDOMEN: Soft, non tender and non distended. No rebound or guarding, and no masses palpated. Bowel Sounds normal. MUSCULOSKELETAL: Good range of motion of all major joints. Extremities without clubbing, cyanosis or edema. NEUROLOGIC EXAM: Awake and oriented 2, lethargic No focal sensory or strength deficits. Speech normal. Follows commands. PSYCHIATRIC: Mood normal. SKIN: detail exam as documented in skin assessment - Constitutional Vitals: Temp Pulse Resp BP Pulse Ox 97.8 F 79 18 97/53 99 06/22/19 08:06 06/22/19 08:50 06/22/19 08:06 06/22/19 08:50 06/22/19 08:50 General appearance: Present: mild distress Results - Labs CBC & Chem 7: 06/22/19 07:49 06/21/19 04:42 Labs: Laboratory Last Values WBC 4.6 K/mm3 (4.5-11.0) 06/22/19 05:21 RBC 3.37 M/mm3 (3.65-5.03) L 06/22/19 05:21 Hgb 10.8 gm/dl (11.8-15.2) L 06/22/19 05:21 Hct 31.7 % (35.5-45.6) L 06/22/19 05:21 MCV 94 fl (84-94) 06/22/19 05:21 MCH 32 pg (28-32) 06/22/19 05:21 MCHC 34 % (32-34) 06/22/19 05:21 RDW 14.0 % (13.2-15.2) 06/22/19 05:21 Plt Count 140 K/mm3 (140-440) D 06/22/19 07:49 Lymph % (Auto) Tipple Operator 06/19/19 Unknown [place] % (Auto) Tipple Operator 06/19/19 Unknown Eos % (Auto) Tipple Operator 06/19/19 Unknown Baso % (Auto) Tipple Operator 06/19/19 Unknown Lymph # Tipple Operator 06/19/19 Unknown [place] # Tipple Operator 06/19/19 Unknown Eos # Tipple Operator 06/19/19 Unknown Baso # Tipple Operator 06/19/19 Unknown Seg Neutrophils % Tipple Operator 06/19/19 Unknown Seg Neutrophils # Tipple Operator 06/19/19 Unknown Sodium 135 mmol/L (137-145) L 06/21/19 04:42 Potassium 3.8 mmol/L (3.6-5.0) 06/21/19 04:42 Chloride 100.4 mmol/L (98-107) 06/21/19 04:42 Carbon Dioxide 27 mmol/L (22-30) 06/21/19 04:42 11 mmol/L 06/21/19 04:42 BUN 14 mg/dL (9-20) 06/21/19 04:42 0.5 mg/dL (0.8-1.5) L 06/21/19 04:42 Estimated GFR > 60 ml/min 06/21/19 04:42 28 % 06/21/19 04:42 Glucose 90 mg/dL (75-100) 06/21/19 04:42 POC Glucose 135 (70-105) H 06/21/19 20:33 5.5 % (4-6) 06/20/19 04:40 Calcium 9.2 mg/dL (8.4-10.2) 06/21/19 04:42 Magnesium 1.60 mg/dL (1.7-2.3) L 06/19/19 Unknown 0.20 mg/dL (0.1-1.2) 06/19/19 Unknown AST 23 units/L (5-40) 06/19/19 Unknown ALT 22 units/L (7-56) 06/19/19 Unknown 84 units/L (35-129) 06/19/19 Unknown 102 units/L (55-170) 06/19/19 Unknown CK-MB (CK-2) 2.0 ng/mL (0.0-4.0) 06/19/19 Unknown CK-MB (CK-2) Rel Index 1.9 (0-4) 06/19/19 Unknown < 0.010 ng/mL (0.00-0.029) 06/19/19 Unknown 6.7 g/dL (6.3-8.2) 06/19/19 Unknown 3.9 g/dL (3.9-5) 06/19/19 Unknown 1.4 % 06/19/19 Unknown Triglycerides 49 mg/dL (2-149) 06/20/19 04:40 Cholesterol 172 mg/dL (50-199) 06/20/19 04:40 67 mg/dL (50-130) 06/20/19 04:40 120 mg/dL (40-59) H 06/20/19 04:40 1.43 % 06/20/19 04:40 Yellow (Yellow) 06/19/19 22:15 Slightly-cloudy (Clear) 06/19/19 22:15 5.0 (5.0-7.0) 06/19/19 22:15 Ur Specific [place] 1.019 (1.003-1.030) 06/19/19 22:15 <15 mg/dl mg/dL (Negative) 06/19/19 22:15 Neg mg/dL (Negative) 06/19/19 22:15 Neg mg/dL (Negative) 06/19/19 22:15 Sm (Negative) 06/19/19 22:15 Pos (Negative) 06/19/19 22:15 Neg (Negative) 06/19/19 22:15 2.0 mg/dL (<2.0) 06/19/19 22:15 Ur Leukocyte Esterase Tr (Negative) 06/19/19 22:15 5.0 /HPF (0.0-6.0) 06/19/19 22:15 3.0 /HPF (0.0-6.0) 06/19/19 22:15 3+ /HPF (Negative) 06/19/19 22:15 Few /HPF 06/19/19 22:15 Active Medications - Current Medications Current Medications: Generic Name Dose Route Start Last Admin Trade Name Freq PRN Reason Stop Dose Admin Acetaminophen 650 mg 06/19/19 23:53 Tylenol PO Q4H PRN Pain MILD(1-3)/Fever >100.5/CALZADA Carbidopa/Levodopa 1 each 06/22/19 08:00 06/22/19 10:11 Sinemet PO 1 each TID MERY Administration Docusate Sodium 100 mg 06/22/19 10:00 Colace PO QDAY PRN Constipation Ferrous Gluconate 324 mg 06/22/19 10:00 Fergon PO QDAY MERY Potassium Chloride/Dextrose/Sod Cl 20 meq in 1,000 mls @ 42 mls/hr 06/19/19 23:45 06/22/19 01:25 D5w/0.45% Nacl/Kcl 20 Meq IV 42 mls/hr DIRECT MERY Administration Loratadine 10 mg 06/22/19 10:00 06/22/19 11:00 Claritin PO 10 mg DAILY MERY Administration Mirtazapine 15 mg 06/22/19 22:00 Remeron PO QHS MERY Ondansetron HCl 4 mg 06/19/19 23:53 Zofran IV Q8H PRN Nausea And Vomiting Sodium Chloride 10 ml 06/19/19 23:45 06/22/19 01:25 Sodium Chloride Flush Syringe 10 Ml IV 10 ml BID MERY Administration Sodium Chloride 10 ml 06/19/19 23:53 Sodium Chloride Flush Syringe 10 Ml IV PRN PRN LINE FLUSH Tamsulosin HCl 0.4 mg 06/22/19 10:00 06/22/19 10:11 Flomax PO 0.4 mg QDAY MERY Administration Trazodone HCl 50 mg 06/22/19 22:00 Desyrel PO QHS MERY Nutrition/Malnutrition Assess - Dietary Evaluation Nutrition/Malnutrition Findings: Nutrition Notes Start: 06/20/19 09:34 Freq: Status: Active Protocol: Document 06/20/19 09:34 LM (Rec: 06/20/19 10:02 LM -[email or web address]) Nutrition Notes Need for Assessment generated from: MD Order,MST Initial or Follow up Assessment Other Pertinent Diagnosis Parkinson's disease, AMS Current Diet NPO Labs/Tests Na 136 Cr 0.7 Mg 1.6 HgBA1C 5.5 BG 82 Pertinent Medications Reviewed Height 5 ft 11 in Weight 38.9 kg Usual Body Weight 50 kg [place] Body Weight (kg) 78.18 BMI 12.0 Intake Prior to Admission Poor Weight change and time frame 23% wt loss in 9 months Subjective/Other Information MD consult for MST. Pt unable to speak at time of visit. Daughter stated that pt lost about 14 lb from last September to November and has beem continually losing weight. Anabell stated pt's UBW is between 110-112 lb. Daughter stated that pt's dentures do not fit due to pt's wt loss and has only been able to eat soft foods. Pt is at an assisted living facility and has trouble feeding himself due to Parkinson's disease. Daughter also stated that pt had high prior hgbA1C and is prediabetic and prefers Glucerna. Noticed muscle wasting in wrists and orbital region. Burn Absent Trauma Absent Difficulty In Chewing Minimum of two criteria Yes Energy Intake (severe) < or equal to 50% Estimated Energy Requirement > or equal to 5 days Interpretation of Weight Loss (severe) >10% in 6 months Muscle Mass Moderate Depletion (severe) #1 Nutrition Diagnosis Malnutrition Etiology Parkinson's disease As Evidenced by Signs and Symptoms 23% weight loss in 9 months, muscle wasting of wrists and orbital region of eyes, less than 50% estimated energy requirement for greater than 5 days Is patient on ventilator? No Is Patient Ambulatory and/or Out of Bed No REE-([facility]-confined to bed) 1387.992 Kcal/Kg value to use for calculation 49 Approximate Energy Requirements Using 1906 kcal/Kg Calculation Used for Recommendations Kcal/kg Additional Notes Protein: 47-58g (1.2-1.5 g/kg) Fluids: 1 ml/kcal Nutrition Intervention Change Diet Order: Advance to mechanical soft when medically feasible Add Supplement/Snack (indicate name/kcal Glucerna [place] TID /protein ) Provides kCal: 660 Provides Protein (gm) 30 Goal #1 Diet advancement Goal #2 Meet at least 80% of energy and protein needs Anticipated Discharge Needs: Mechanical soft diet with ONS TID Follow-Up By: 06/22/19 Additional Comments F/U for diet advancement, PO/ ONS intakes - Attestation Statement I have reviewed and agreed w/ Malnutrition eval & tx plan: Yes
[2019-06-22] MEDS: REMERON PO SCH (22:23)
[2019-06-22] MEDS: DESYREL PO SCH (22:23)
[2019-06-23 04:29] LABS: Hematocrit 33.7 % (35.5-45.6); Hemoglobin 11.4 gm/dl (11.8-15.2); Mean Corpuscular HGB Conc 34 % (32-34); Mean Corpuscular Volume 95 fl (84-94); Platelet Count 129 K/mm3 (140-440); Red Blood Count 3.54 M/mm3 (3.65-5.03); Red Cell Distribution Width 14.2 % (13.2-15.2)
[2019-06-23 04:53] LABS: BUN/Creatinine Ratio 24; Blood Urea Nitrogen 12 mg/dL (9-20); Calcium 9.4 mg/dL (8.4-10.2); Hemolysis Index 16
[2019-06-23] MEDS: D5W/0.45% NACL/KCL 20 MEQ 20 MEQ/1,000 ML BAG IV SCH (05:25)
[2019-06-23] MEDS: SINEMET PO SCH ×3 (08:00→20:44)
[2019-06-23] MEDS: FLOMAX PO SCH (10:07)
[2019-06-23] MEDS: CLARITIN PO SCH (10:08)
[2019-06-23] MEDS: FERGON PO SCH (10:08)
[2019-06-23] MEDS: SODIUM CHLORIDE FLUSH SYRINGE 10 ML IV SCH ×2 (10:09→22:43)
--- NOTE | 2019-06-23 10:46 | Progress Note ---
Assessment and Plan Assessment and plan: The patient is a 73-year-old male presenting with a chief complaint of altered mental status. Patient's daughter states patient was found on the ground bleeding from his head 1 06/12/2019 at his assisted living facility. The patient is taken to [facility] where he was evaluated at his laceration re paired. 5 days later on 06/17/2019 patient was taken back to [facility] after complaining of a headache and he found hypotensive. Patient was admitted for 2 days and is hypotension was treated to dehydration compounded with prostate medication. The patient was returned to his assisted living facility yesterday. The patient's daughter states today he had an episode of unresponsiveness where he was staring off to the side for approximately 2 minutes without responding. The patient reportedly had a similar episode the day after his initial fall (06/13/2019). When asked how his feeling the patient points to pain to the left side of his neck and in both knees. The patient's daughter states that she is concerned that the patient is not continuously observed at the assisted-living facility she is seeking intermediate placement * Per daughter patient normally able to assist with ADL including some shuffling gait which has declined * She will discuss with him and think about PEG if needed. * Neurology review of imaging was concerning for cerebellar degeneration, profound lateral hemisphere of the ceerebellum with marked shrinkage as well as midline cerebellar shrinkage with frontotemporal atrophy MRI: Negative for acute event Seizure vs CVA-Reported with blank stare- doubt CVA Dehydration Postconcussion syndrome Adult Failure to Thrive, BMI OF 12, Recent 14 pounds weight loss Severe Protien calorie malnutrition Hypomagenesmia Acute Metabolic Encephalopathy Recent head trauma Requiring suturing Parkinson disease Thrombocytopenia- Resolve Plan: Continue supportive care Neurology consult noted Monitor plt, no bleeding noted Hematology consult IF PERSISTENT THROMBOCYTOPENA NOTED Physical therapy/occupational therapy to evaluate and treat Consult case management for DC planning Ensure TID with meals Subacute Rehab PLACEMENT PENDING Resume home meds Plan d/w patient and family in room, voiced understand Plan d/w Advance Directives: Yes- 30 mins VTE prophylaxis?: Chemical Plan of care discussed with patient/family: Yes History Interval history: Patient seen and examined medical records reviewed No new complaints Vital signs noted Patient is awaiting placement Hospitalist Physical - Constitutional Vitals: Temp Pulse Resp BP Pulse Ox 97.4 F L 76 14 107/55 100 06/23/19 07:55 06/23/19 08:58 06/23/19 07:55 06/23/19 07:55 06/23/19 07:55 General appearance: Present: no acute distress, cachectic, disheveled - EENT Eyes: Present: PERRL, EOM intact - Neck Neck: Present: supple, normal ROM - Respiratory Respiratory effort: normal Respiratory: bilateral: diminished, rhonchi, negative: rales, wheezing - Cardiovascular Rhythm: regular Heart Sounds: Present: S1 & S2 - Extremities Extremities: no ischemia, No edema - Abdominal General gastrointestinal: soft, non-tender, non-distended, normal bowel sounds - Integumentary Integumentary: Present: clear, warm - Psychiatric Psychiatric: other (minimally communicative) - Neurologic Neurologic: moves all extremities Results - Labs CBC & Chem 7: 06/23/19 03:34 06/23/19 03:34 Labs: Laboratory Last Values WBC 8.4 K/mm3 (4.5-11.0) 06/23/19 03:34 RBC 3.54 M/mm3 (3.65-5.03) L 06/23/19 03:34 Hgb 11.4 gm/dl (11.8-15.2) L 06/23/19 03:34 Hct 33.7 % (35.5-45.6) L 06/23/19 03:34 MCV 95 fl (84-94) H 06/23/19 03:34 MCH 32 pg (28-32) 06/23/19 03:34 MCHC 34 % (32-34) 06/23/19 03:34 RDW 14.2 % (13.2-15.2) 06/23/19 03:34 Plt Count 129 K/mm3 (140-440) L 06/23/19 03:34 Lymph % (Auto) Gis Programmer 06/19/19 Unknown [place] % (Auto) Gis Programmer 06/19/19 Unknown Eos % (Auto) Gis Programmer 06/19/19 Unknown Baso % (Auto) Gis Programmer 06/19/19 Unknown Lymph # Gis Programmer 06/19/19 Unknown [place] # Gis Programmer 06/19/19 Unknown Eos # Gis Programmer 06/19/19 Unknown Baso # Gis Programmer 06/19/19 Unknown Seg Neutrophils % Gis Programmer 06/19/19 Unknown Seg Neutrophils # Gis Programmer 06/19/19 Unknown Sodium 141 mmol/L (137-145) 06/23/19 03:34 Potassium 4.3 mmol/L (3.6-5.0) 06/23/19 03:34 Chloride 103.7 mmol/L (98-107) 06/23/19 03:34 Carbon Dioxide 28 mmol/L (22-30) 06/23/19 03:34 14 mmol/L 06/23/19 03:34 BUN 12 mg/dL (9-20) 06/23/19 03:34 0.5 mg/dL (0.8-1.5) L 06/23/19 03:34 Estimated GFR > 60 ml/min 06/23/19 03:34 24 % 06/23/19 03:34 Glucose 88 mg/dL (75-100) 06/23/19 03:34 POC Glucose 135 (70-105) H 06/21/19 20:33 5.5 % (4-6) 06/20/19 04:40 Calcium 9.4 mg/dL (8.4-10.2) 06/23/19 03:34 Magnesium 1.60 mg/dL (1.7-2.3) L 06/19/19 Unknown 0.20 mg/dL (0.1-1.2) 06/19/19 Unknown AST 23 units/L (5-40) 06/19/19 Unknown ALT 22 units/L (7-56) 06/19/19 Unknown 84 units/L (35-129) 06/19/19 Unknown 102 units/L (55-170) 06/19/19 Unknown CK-MB (CK-2) 2.0 ng/mL (0.0-4.0) 06/19/19 Unknown CK-MB (CK-2) Rel Index 1.9 (0-4) 06/19/19 Unknown < 0.010 ng/mL (0.00-0.029) 06/19/19 Unknown 6.7 g/dL (6.3-8.2) 06/19/19 Unknown 3.9 g/dL (3.9-5) 06/19/19 Unknown 1.4 % 06/19/19 Unknown Triglycerides 49 mg/dL (2-149) 06/20/19 04:40 Cholesterol 172 mg/dL (50-199) 06/20/19 04:40 67 mg/dL (50-130) 06/20/19 04:40 120 mg/dL (40-59) H 06/20/19 04:40 1.43 % 06/20/19 04:40 Yellow (Yellow) 06/19/19 22:15 Slightly-cloudy (Clear) 06/19/19 22:15 5.0 (5.0-7.0) 06/19/19 22:15 Ur Specific [place] 1.019 (1.003-1.030) 06/19/19 22:15 <15 mg/dl mg/dL (Negative) 06/19/19 22:15 Neg mg/dL (Negative) 06/19/19 22:15 Neg mg/dL (Negative) 06/19/19 22:15 Sm (Negative) 06/19/19 22:15 Pos (Negative) 06/19/19 22:15 Neg (Negative) 06/19/19 22:15 2.0 mg/dL (<2.0) 06/19/19 22:15 Ur Leukocyte Esterase Tr (Negative) 06/19/19 22:15 5.0 /HPF (0.0-6.0) 06/19/19 22:15 3.0 /HPF (0.0-6.0) 06/19/19 22:15 3+ /HPF (Negative) 06/19/19 22:15 Few /HPF 06/19/19 22:15 Active Medications - Current Medications Current Medications: Generic Name Dose Route Start Last Admin Trade Name Freq PRN Reason Stop Dose Admin Acetaminophen 650 mg 06/19/19 23:53 Tylenol PO Q4H PRN Pain MILD(1-3)/Fever >100.5/CALZADA Carbidopa/Levodopa 1 each 06/22/19 08:00 06/23/19 08:00 Sinemet PO 1 each TID MERY Administration Docusate Sodium 100 mg 06/22/19 10:00 Colace PO QDAY PRN Constipation Ferrous Gluconate 324 mg 06/22/19 10:00 06/23/19 10:08 Fergon PO 324 mg QDAY MERY Administration Potassium Chloride/Dextrose/Sod Cl 20 meq in 1,000 mls @ 42 mls/hr 06/19/19 23:45 06/23/19 05:25 D5w/0.45% Nacl/Kcl 20 Meq IV 42 mls/hr DIRECT MERY Administration Loratadine 10 mg 06/22/19 10:00 06/23/19 10:08 Claritin PO 10 mg DAILY MERY Administration Mirtazapine 15 mg 06/22/19 22:00 06/22/19 22:23 Remeron PO 15 mg QHS MERY Administration Ondansetron HCl 4 mg 06/19/19 23:53 Zofran IV Q8H PRN Nausea And Vomiting Sodium Chloride 10 ml 06/19/19 23:45 06/23/19 10:09 Sodium Chloride Flush Syringe 10 Ml IV 10 ml BID MERY Administration Sodium Chloride 10 ml 06/19/19 23:53 Sodium Chloride Flush Syringe 10 Ml IV PRN PRN LINE FLUSH Tamsulosin HCl 0.4 mg 06/22/19 10:00 06/23/19 10:07 Flomax PO 0.4 mg QDAY MERY Administration Trazodone HCl 50 mg 06/22/19 22:00 06/22/19 22:23 Desyrel PO 50 mg QHS MERY Administration Nutrition/Malnutrition Assess - Dietary Evaluation Nutrition/Malnutrition Findings: Nutrition Notes Start: 06/20/19 09 :34 Freq: Status: Active Protocol: Document 06/22/19 14:10 RM (Rec: 06/22/19 14:16 RM [id number]) Nutrition Notes Initial or Follow up Reassessment Other Pertinent Diagnosis Parkinson's disease, AMS Current Diet [facility] soft w/Glucerna TID Labs/Tests Reviewed Pertinent Medications Reviewed Height 5 ft 11 in Weight 41.8 kg [place] Body Weight (kg) 78.18 BMI 12.8 Subjective/Other Information Diet advanced to [facility] soft. Pt and pt daughter in room at time of visit. Pt daughter stated that pt appetite is good and that he eats all of his meals. Also stated that pt drinks the Glucerna. Percent of energy/protein needs met: 100%/100% Burn Absent Trauma Absent Minimum of two criteria Yes Energy Intake (severe) < or equal to 50% Estimated Energy Requirement > or equal to 5 days Interpretation of Weight Loss (severe) >10% in 6 months Muscle Mass Moderate Depletion (severe) #1 Nutrition Diagnosis Malnutrition Diagnosis Progress(for reassessment Continues documentation) Is patient on ventilator? No Is Patient Ambulatory and/or Out of Bed No REE-([facility]-confined to bed) 1422.756 Kcal/Kg value to use for calculation 49 Approximate Energy Requirements Using 2048 kcal/Kg Calculation Used for Recommendations Kcal/kg Additional Notes Protein: 47-58g (1.2-1.5 g/kg) Fluids: 1 ml/kcal Nutrition Intervention Change Diet Order: Continue current Add Supplement/Snack (indicate name/kcal Glucerna [place] TID /protein ) Provides kCal: 660 Provides Protein (gm) 30 Goal #1 Continue to meet at least 75% of calorie and protein needs via PO and ONS intakes Anticipated Discharge Needs: Mechanical soft diet with ONS TID Follow-Up By: 06/29/19 Additional Comments Follow for PO and ONS intakes
[2019-06-23] MEDS: DESYREL PO SCH (22:42)
[2019-06-23] MEDS: REMERON PO SCH (22:42)
[2019-06-24] MEDS: D5W/0.45% NACL/KCL 20 MEQ 20 MEQ/1,000 ML BAG IV SCH (06:11)
[2019-06-24] MEDS ORDERED: HEPARIN/NS 5000 UNIT/500ML(CATH LAB) 0 ML IR ONE (09:05)
[2019-06-24] MEDS: SINEMET PO SCH ×2 (09:16→15:11)
[2019-06-24] MEDS: FLOMAX PO SCH (09:16)
[2019-06-24] MEDS: CLARITIN PO SCH (09:16)
[2019-06-24] MEDS: FERGON PO SCH (09:22)
[2019-06-24] MEDS: SODIUM CHLORIDE FLUSH SYRINGE 10 ML IV SCH (10:00)
--- NOTE | 2019-06-24 14:40 | Discharge Summary ---
Providers - Providers Date of Admission: 06/19/19 23:53 Date of discharge: 06/24/19 Attending physician: MARYAM LAGUNAS 06/19/19 23:54 Occupational Therapy Evaluate and Treat [CONS] Routine Comment: Reason For Exam: Neuro deficits Physical Therapy Evaluation and Treat [CONS] Routine Comment: Reason For Exam: Neuro deficits 06/20/19 03:42 Speech Therapy Evaluation and Treat [CONS] Urgent Reason For Exam: failed swallow screen 06/20/19 04:52 Consult to Wound/ET Nurse [CONS] Routine Reason For Exam: wound eval of right shoulder 06/20/19 07:04 Consult to Case Management [CONS] Routine Services Needed at Discharge: Other Notified:: CASE MANAGEMENT Comment:: DC plan 06/20/19 07:55 Consult to Physician [CONS] Routine Comment: Consulting Provider: BLUE SNYDER Physician Instructions: Reason For Exam: seizure 06/20/19 07:56 Consult to Dietitian/Nutrition [CONS] Routine Physician Instructions: malnutrition Reason For Exam: Reason for Consult: Malnutrition Hospitalization Condition: Fair Disposition: [facility] [facility] Time spent for discharge: 32 min Core Measure Documentation - Palliative Care Palliative Care/ Comfort Measures: Not Applicable - Core Measures Any of the following diagnoses?: none Exam - Constitutional Vitals: Temp Pulse Resp BP Pulse Ox 98.7 F 81 14 91/41 100 06/24/19 07:31 06/24/19 07:31 06/24/19 07:31 06/24/19 07:31 06/24/19 07:31 General appearance: Present: no acute distress, cachectic, disheveled - EENT Eyes: Present: PERRL, EOM intact - Neck Neck: Present: supple, normal ROM - Respiratory Respiratory effort: normal Respiratory: bilateral: diminished, negative: rales, rhonchi, wheezing - Cardiovascular Rhythm: regular Heart Sounds: Present: S1 & S2 - Extremities Extremities: no ischemia, No edema - Abdominal General gastrointestinal: Present: soft, non-tender, non-distended, normal bowel sounds - Integumentary Integumentary: Present: clear, warm - Musculoskeletal Musculoskeletal: generalized weakness - Psychiatric Psychiatric: appropriate mood/affect, cooperative - Neurologic Neurologic: other (Residual weakness) Plan Activity: advance as tolerated, fall precautions Diet: advance as tolerated, other (Mechanical soft diet) Special Instructions: physical therapy Additional Instructions: Fall precautions. Aspiration precautions Follow up with: VISITING NURSE,HEALTH SYSTEM [Other] - 3-5 Days BLUE SNYDER MD [Staff Physician] - 7 Days
[2019-06-24 16:26] VITALS: BP 95/50
== END 2019-06-24 17:57 | DRG 100 ==
LOC: ED 17:48 → 4A 23:53
PROVIDERS: ADMIT Internal Medicine; ATTEND Internal Medicine
DX: R56.9 Unspecified convulsions (principal); E43 Unspecified severe protein-calorie malnutrition; R64 Cachexia; Z68.1 Body mass index [BMI] 19.9 or less, adult; G20 Parkinson's disease; N40.0 Benign prostatic hyperplasia without lower urinary tract symptoms; F32.9 Major depressive disorder, single episode, unspecified; R62.7 Adult failure to thrive; E83.42 Hypomagnesemia; F07.81 Postconcussional syndrome; E86.0 Dehydration; D69.6 Thrombocytopenia, unspecified; G31.9 Degenerative disease of nervous system, unspecified; Z87.891 Personal history of nicotine dependence
CPT/HCPCS: 36415; 70450; 70551; 72125; 72170; 80048; 80053; 80061; 81001; 82550; 82553; 82962; 83036; 83735; 84484; 85025; 85027; 85049; 93005; 93010; 93880; G0378; J1644; J3475